=== PATIENT | female | born 1940 | race Caucasian/White ===

== ENCOUNTER 2025-05-21 13:16 | Emergency (ER) | payer OTHER, SELFPAY ==
[2025-05-21] VITALS (10 sets, daily range): BP systolic 111–154; BP diastolic 47–86; BMI 21.4
--- NOTE | 2025-05-21 13:38 | EDRN ---
Pts son at bedside, pt continues to refuse to give urine, or have this RN start IV for bloodwork.
--- NOTE | 2025-05-21 14:41 | ED.GENMED ---
Addendum entered and electronically signed by Doris Reza PA-C 05/24/25 07:23:
e coli + urine culture
pt called, left message
Original Note:
History of Present Illness
<MARGARET Townsend - Last Filed: 05/21/25 17:54>
General
Chief Complaint: Urinary Symptoms
Source: patient
Exam Limitations: none
Time Seen by Provider: 05/21/25 13:51
Nursing documentation reviewed up to this point in time: agreed with
History of Present Illness
History of Present Illness:
84-year-old female brought by EMS for evaluation. Son at bedside reports patient ' was complaining that her body temperature was low and went to the doctor's. ' Son reports patient constantly complains that she is cold and has been recommended to
take iron in the past but refuses all medications.
She denies any recent illness but does report she has had a mild cough for the past 1 to 2 days.
She so she went to her doctor's office but apparently her primary care doctor was not in.
Patient making multiple statements such as ' I'm chronic.' \\
son reports patient is very difficult and switched his primary care physicians quite often
She lives in a independent living facility and believes she is exposed to other peoples medications which she is allergic to. She tells me that' affect me through the air.'
Pt refused 'any interventions ' by the nurse prior to my exam. She did allow her blood work to get drawn
Phy Exam
<MARGARET Townsend - Last Filed: 05/21/25 17:54>
General Physical Exam
General Presentation: no apparent distress
General age: appears stated age
General Skin: warm and dry
General Habitus: elderly
General Mental: alert
General Hydration: appears well hydrated
Cardiovascular Exam
Cardiovascular Exam: regular rate/rhythm, no murmur and normal peripheral pulses
Pulmonary Exam
Pulmonary Exam: lungs clear and no respiratory distress
Gastrointestinal Exam
Gastrointestinal Exam: non tender, soft and other (Refused rectal exam)
Neurological Exam
Neurological Exam: alert and oriented x3
Musculoskeletal Exam
Musculoskeletal Exam: full ROM
Skin Exam
Skin Exam: normal color and warm/dry
Psychiatric Exam
Psychiatric Exam: normal mood/affect
Course
<MARGARET Townsend - Last Filed: 05/21/25 17:54>
Orders/Labs/Results
Orders:
Orders
05/21/25
Electrocardiogram (*1) Stat
Comment: DONE EMR
05/21/25 14:43
IV Insert/Care/Rem.- Treatment PRN
05/21/25 14:49
Complete Blood Count/With Diff Urgent
Comprehensive Metabolic Panel Urgent
Ferritin Urgent
TSH Reflex To Free T4 Urgent
Total Iron Binding Urgent
05/21/25 17:08
Urinalysis Reflex To Culture Urgent
Date Specimen was Collected: 05/21/25
Time Specimen was Collected: 17:06
Urine Microscopic Reflex Cult Urgent
Urine Culture Urgent
GELA Source: U
Specimen Description:
Date Specimen was Collected: 05/21/25
Time Specimen was Collected: 17:06
Abnormal Lab Results
05/21/25 05/21/25
14:49 17:08
RBC 2.64 L 10^6/uL
(4.20-5.40)
Hgb 5.7 L* g/dL
(12.0-16.0)
Hct 18.6 L* %
(37.0-47.0)
MCV 70.5 L fL
(81.0-99.0)
MCH 21.6 L pg
(27.0-31.0)
MCHC 30.6 L g/dL
(33.0-37.0)
MPV 11.4 H fL
(7.4-10.4)
Monocytes % 11.6 H %
(1.7-9.3)
Chloride 109 H mmol/L
(98-107)
Carbon Dioxide 20 L mmol/L
(22-30)
BUN 33 H mg/dl
(7-17)
Creatinine 1.4 H mg/dL
(0.6-1.0)
Glucose 100 H mg/dl
(70-99)
Ferritin 5.0 L ng/ml
(11.1-264.0)
Urine Nitrite (Reflex) Positive A
(Negative)
Urine Bacteria (Reflex) Many A
(Negative)
Urine Albumin (Reflex) 1+ A
(Neg - Trace)
05/21/25 14:49
05/21/25 14:49
Vital Signs
Initial and Last Documented VS:
Initial Vital Signs
Temp Pulse Resp BP Pulse Ox
98.5 F 72 24 154/52 100
05/21/25 13:19 05/21/25 13:19 05/21/25 13:19 05/21/25 13:19 05/21/25 13:19
Last Documented Vital Signs
Temp Pulse Resp BP Pulse Ox
98.5 F 71 17 154/47 99
05/21/25 13:19 05/21/25 17:30 05/21/25 17:30 05/21/25 17:30 05/21/25 17:30
Upscale Security Officer consulted with Physician
Upscale Security Officer consulted with physician?: Yes
Name of Physician Consulted: LARRY
<Destin Fernandez MD - Last Filed: 05/21/25 22:05>
Orders/Labs/Results
Orders:
Orders
05/21/25
Electrocardiogram (*1) Stat
Comment: DONE EMR
05/21/25 14:43
IV Insert/Care/Rem.- Treatment PRN
05/21/25 14:49
Complete Blood Count/With Diff Urgent
Comprehensive Metabolic Panel Urgent
Ferritin Urgent
TSH Reflex To Free T4 Urgent
Total Iron Binding Urgent
05/21/25 17:08
Urinalysis Reflex To Culture Urgent
Date Specimen was Collected: 05/21/25
Time Specimen was Collected: 17:06
Urine Microscopic Reflex Cult Urgent
Urine Culture Urgent
GELA Source: U
Specimen Description:
Date Specimen was Collected: 05/21/25
Time Specimen was Collected: 17:06
Abnormal Lab Results
05/21/25 05/21/25
14:49 17:08
RBC 2.64 L 10^6/uL
(4.20-5.40)
Hgb 5.7 L* g/dL
(12.0-16.0)
Hct 18.6 L* %
(37.0-47.0)
MCV 70.5 L fL
(81.0-99.0)
MCH 21.6 L pg
(27.0-31.0)
MCHC 30.6 L g/dL
(33.0-37.0)
MPV 11.4 H fL
(7.4-10.4)
Monocytes % 11.6 H %
(1.7-9.3)
Chloride 109 H mmol/L
(98-107)
Carbon Dioxide 20 L mmol/L
(22-30)
BUN 33 H mg/dl
(7-17)
Creatinine 1.4 H mg/dL
(0.6-1.0)
Glucose 100 H mg/dl
(70-99)
Ferritin 5.0 L ng/ml
(11.1-264.0)
Urine Nitrite (Reflex) Positive A
(Negative)
Urine Bacteria (Reflex) Many A
(Negative)
Urine Albumin (Reflex) 1+ A
(Neg - Trace)
05/21/25 14:49
05/21/25 14:49
Vital Signs
Initial and Last Documented VS:
Initial Vital Signs
Temp Pulse Resp BP Pulse Ox
98.5 F 72 24 154/52 100
05/21/25 13:19 05/21/25 13:19 05/21/25 13:19 05/21/25 13:19 05/21/25 13:19
Last Documented Vital Signs
Temp Pulse Resp BP Pulse Ox
98.5 F 71 17 154/47 99
05/21/25 13:19 05/21/25 17:30 05/21/25 17:30 05/21/25 17:30 05/21/25 17:30
<MARGARET Townsend - Last Filed: 05/21/25 17:54>
MDM/Problems Addressed
MDM/Problems Addressed:
Patient is documented a 84-year-old female who presents for evaluation. She initially complained of feeling very cold. Son reports she is a very difficult patient went to her primary care physician but the primary care physician was not sent in
and she came here to the ER.
Patient is awake alert oriented x 3 but is very irrational thoughts. She tells me she is' allergic to every medicine' and' is exposed to that medicine in the air.'
Patient presented with stable vital signs was found to have a hemoglobin of 5.7 and is refusing blood and care. Refusing rectal exam.
She states to me that she only trusts her primary care physician Dr. Ender Armenta. I called this office however she is not in today.
Pt very unreasonable remains in rational., Case discussed with Dr. Fernandez.
Patient now wishes us to contact her pipefitter welder.
1720: Awaiting cardiology callback. Patient resting in no acute distress care. Care of patient this time transferred to Dr. Fernandez.
<MARGARET Townsend - Last Filed: 05/21/25 17:54>
*Pulse Oximetry
SaO2: 100
Oxygen Mode of Delivery: Room air
Patient hypoxic: no
*Critical Care Note
Total Time (30-74mins, 75-104mins- exclusive of procedures): Not Applicable
ED Attending Note
<MARGARET Townsend - Last Filed: 05/21/25 17:54>
-
Portions of this chart may have been created with voice recognition software.� Occasional wrong word or��sound alike� substitutions may have occurred due to the inherent limitations of voice recognition software.
<Destin Fernandez MD - Last Filed: 05/21/25 22:05>
ED Attending Note
Patient seen and examined by attending physician: Yes
ED Attending Note:
Patient presents to ED for evaluation after near syncopal episode during evaluation at her primary care doctor's office today. Per son, he was asked to bring her to her doctor's office, as she expressed not feeling well and needed to be checked
out. Unfortunately, her primary care physician was not available. As such, she was seen by an associate who after evaluation called 911. Upon arrival, patient is alert and awake and reports feeling cold and not well. Patient also adamantly
refusing any treatment in the hospital, as she only trusts her primary pipefitter welder, Dr. Yen, of [facility]. Patient otherwise has no specific other complaints. Patient states that ever since she was a child, she has had difficult time with
medications and hospital.
Physical Exam
General: no apparent distress, not acutely ill. afebrile
Head: nc/at. eomi
Neck: supple. no meningeal signs.
Heart: s1/s2 regular rate and rhythm
Lungs: no acute respiratory distress. clear bilaterally
Abdomen: normal bowel sounds. not tender.
Neuro: alert and oriented x 3. no focal neurological deficits. normal speech
Skin: no rash
Psychiatric: well kept. interactive and cooperative
Extremities: no edema. no calf tenderness.
Blood work, significant for severe anemia, discussed with patient and her son. Patient is alert, awake, and oriented x 3, and actively competent, but continues to exhibit irrational thoughts, when he comes medical care. Patient requested to speak
with her pipefitter welder, Dr. Yen, to determine whether or not she should receive treatment in the hospital. As such, placed call to [facility] and spoke with nurse practitioner, who was kind enough to speak with patient via phone. After phone
conversation, patient still insisting upon going home. Patient does not wish to receive any care in the hospital setting. She and her son will contact her primary care physician and/or pipefitter welder tomorrow for outpatient evaluation. Patient and
son understand that upon leaving ED, her symptoms may worsen, including syncope, MO, CVA, or . Patient would like to sign out AGAINST MEDICAL ADVICE.
After departure from ED, received phone call from and discussed the events which took place in ED. aware that patient left AMA and that she may receive phone call in the office tomorrow. Recommended to to encourage patient to
seek immediate medical help, including transfusion, to avoid worening symptoms/outcome
Discharge Plan
Departure
Patient Disposition: Against Medical Advice
Date of Disposition: 05/21/25
Time of Disposition: 17:50
Patient with high blood pressure during this ER visit?: Yes
Condition: Fair
Discharge Problem:
Anemia, Near syncope
Instructions: Leaving Against Medical Advice, Near Fainting (DC), Anemia in adults, possibly from low iron - ED discharge instructions
Prescriptions:
No Action
lisinopril 20 mg Tablet
20 mg PO DAILY
verapamil 240 mg Tablet Extended Release
240 mg PO DAILY
rosuvastatin [Crestor] 5 mg Tablet
5 mg PO DAILY
Referrals:
Brannon Armenta MD [Family Provider, Internal Medicine]
Activity Restrictions/Additional Instructions:
As discussed, you must follow-up with your primary care physician or pipefitter welder, as soon as upon leaving ED for reevaluation. You are leaving ED AGAINST MEDICAL ADVICE. Risks upon leaving ED include worsening condition, i.e. syncope, heart
attack, stroke, or .
Interventions
Interventions:
*Risk Screen - Suicide Last Done: 05/21/25 13:19
*General Assessment Last Done: 05/21/25 13:19
*Neglect/Abuse Screening Last Done: 05/21/25 13:19
*ED- Fall Risk Assessment Last Done: 05/21/25 13:19
*Nursing Disposition Last Done: 05/21/25 17:50
ED-Female Genitourinary Assessment Last Done: 05/21/25 13:19
Discharge Date and Time
Discharge Date/Time: 05/21/25 17:56
Print Language: WOLOF
[2025-05-21 15:14] LABS: Hematocrit 18.6 % (37.0-47.0); Hemoglobin 5.7 g/dL (12.0-16.0); Mean Corp Hgb Conc. 30.6 g/dL (33.0-37.0); Mean Corpuscular Volume 70.5 fL (81.0-99.0); Platelet Count 229 10^3/uL (130-400); Red Cell Dist. Width 13.8 % (11.5-14.5)
[2025-05-21 15:15] LABS: Nucleated Red Blood Cells % 0 %
[2025-05-21 15:19] LABS: ALT (SGPT) 11 U/L (0-35); AST (SGOT) 20 U/L (14-36); Albumin 4.3 g/dl (3.5-5.0); Alkaline Phosphatase 52 U/L (38-126); Blood Urea Nitrogen 33 mg/dl (7-17); Calcium 9.7 mg/dl (8.4-10.2); Carbon Dioxide 20 mmol/L (22-30); Chloride 109 mmol/L (98-107); Estimated Creatinine Clearance 23 ml/min; Glucose 100 mg/dl (70-99); Potassium 4.6 mmol/L (3.5-5.1); Sodium 138 mmol/L (135-145); Total Protein 6.4 g/dl (6.3-8.2); eGFR 36.87
[2025-05-21 15:28] LABS: Total Iron Binding Capacity 472 ug/dl (265-497)
[2025-05-21 15:54] LABS: Ferritin 5.0 ng/ml (11.1-264.0)
[2025-05-21 17:22] LABS: Urine Character Clear (Clear)
[2025-05-21 17:33] LABS: Urine Squamous Cell 0-2 /LPF (Few)
[2025-05-21 17:34] LABS: Urine Red Blood Cell 0-2 /HPF (0-2)
--- NOTE | 2025-05-21 17:45 | EDRN ---
Pt refusing blood transfusion, pt refusing admission. Son at bedside, Romelia MEDIA PLANNER, Dr. Russ Fernandez at bedside to discuss AMA form.
== END 2025-05-21 17:56 | disposition left against medical advice (07) ==
LOC: EMR 13:16
PROVIDERS: Nurse Practitioner; EMERGENCY PHYSICIAN Emergency Medicine; FAMILY PHYSICIAN Internal Medicine
DX: D64.9 Anemia, unspecified (principal); R55 Syncope and collapse; R03.0 Elevated blood-pressure reading, without diagnosis of hypertension
CPT/HCPCS: 99283; 80053; 81003; 81015; 82728; 83550; 84443; 85025; 87086; 87088; 87186; 93005